=== PATIENT | female | born 1935 | race Caucasian/White ===

== ENCOUNTER 2016-11-26 08:14 | Emergency (ER) | payer MEDICARE, OTHER ==
[~2016-11-26] VITALS: Ht 149.9 cm; Wt 49.0 kg
[~2016-11-26 08:14] MED LIST: COLA100C PO; CYCL5TAB PO; HYDR-3533 PO; IBUP600 PO; LISI-357 PO; POLY119S PO; SENN187T PO; ULTR50TA PO
[2016-11-26 08:18] VITALS: BP 181/95; PULSE 85; RESP 18; TEMP 97.8; O2SAT 97
[2016-11-26] MEDS ORDERED: LISI-519 PO (08:28)
[2016-11-26 08:30] VITALS: BP 185/88; PULSE 82; RESP 14; TEMP 97.8; O2SAT 95
[2016-11-26] MEDS ORDERED: ACETAMINOPHEN 325 MG TAB PO ONE (09:30)
[2016-11-26] MEDS ORDERED: METHOCARBAMOL 500 MG TAB PO ONE (09:30)
--- NOTE | 2016-11-26 09:57 | PD ---
HPI Chief Complaint: Pain: Acute or Chronic Time Seen by Provider: 09:16 Travel History International Travel<30 days: No Contact w/Intl Traveler<30days: No Traveled to known affect area: No History of Present Illness HPI Patient is an 81-year-old female comes in complaining of left hip pain. She says she has had the pain since Tuesday. She says it started after she was helping her daughter find her camera. She says she lifted part of the couch and she felt a snap to the left side. Since then she has been having pain. She has not taken anything for pain as she says she does not like taking medications. She has been placing ice to the area. She has been walking around. She denies any numbness or tingling in her legs. She denies any urinary symptoms. PFSH Past Medical History Arthritis: Yes (FINGERS AND HANDS) Atrial Fibrillation: Yes Blood Disorders: No Cancer: No Cardiovascular Problems: Yes (AFIB) COPD: Yes Diminished Hearing: No Endocrine: No Gastrointestinal Disorders: No Genitourinary: Yes Hypertension: Yes Immune Disorder: No Medical other: Yes (OSTEOPOROSIS) Musculoskeletal: Yes Neurologic: No Psychiatric: No Respiratory: Yes Menopausal: Yes Past Surgical History Eye Surgery: Yes (OD CATARACT REMOVAL AND LENS PUT IN ) Gynecologic Surgery: Yes (PARTIAL HYSTERECTOMY AT AGE 20) Hysterectomy: Yes Other Surgery: Yes Social History Alcohol Use: No Tobacco Use: No Substance Use: No Allergies-Medications (Allergen,Severity, Reaction): Coded Allergies: promethazine (Unverified Allergy, Severe, "HIVES", 11/26/16) Reported Meds & Prescriptions Reported Meds & Active Scripts Active Reported Lisinopril 5 Mg Tab 5 Mg PO DAILY Review of Systems Except as stated in HPI: all other systems reviewed are Neg General / Constitutional: No: Fever, Chills HENT: No: Headaches, Lightheadedness Cardiovascular: No: Chest Pain or Discomfort Respiratory: No: Shortness of Breath Gastrointestinal: No: Nausea, Vomiting Genitourinary: No: Dysuria, Incontinence Musculoskeletal: Positive: Pain, No: Limited ROM, Edema Skin: No Rash, No Change in Pigmentation Neurologic: No: Weakness, Dizziness, Paresthesia, Sensory Disturbance Physical Exam Narrative GENERAL: Awake and alert, in no acute distress. SKIN: Focused skin assessment warm/dry. HEAD: Atraumatic. Normocephalic. EYES: Pupils equal and round. No scleral icterus. ENT: Mucous membranes pink and moist. NECK: Trachea midline. No JVD. CARDIOVASCULAR: Regular rate and rhythm. No murmur appreciated. RESPIRATORY: No accessory muscle use. Clear to auscultation. Breath sounds equal bilaterally. GASTROINTESTINAL: Abdomen soft, non-tender, nondistended. MUSCULOSKELETAL: No obvious deformities. No clubbing. No cyanosis. No edema. No tenderness to the thoracic or lumbar spine. No tenderness to palpation of the hip or pelvis. No pain with external or internal rotation of the left hip. NEUROLOGICAL: Awake and alert. No obvious cranial nerve deficits. Motor grossly within normal limits. Normal speech. PSYCHIATRIC: Appropriate mood and affect; insight and judgment normal. Data Data Last Documented VS Vital Signs Date Time Temp Pulse Resp B/P Pulse Ox O2 Delivery O2 Flow Rate FiO2 11/26/16 08:30 97.8 82 14 185/88 95 Room Air Orders Spine, Lumbar Comp W/Obliq (11/26/16 ) Hip, Uni(4+Vws) W Ap Pelvis (11/26/16 ) Acetaminophen (Tylenol) (11/26/16 09:30) Methocarbamol (Robaxin) (11/26/16 09:30) MDM Medical Decision Making Medical Screen Exam Complete: Yes Emergency Medical Condition: Yes Medical Record Reviewed: Yes Differential Diagnosis Hip fracture versus lumbar spine fracture versus muscle strain versus sciatica Narrative Course Patient is a 81 year old female who comes in complaining of left hip pain Exam shows no tenderness to palpation of the lumbar spine or hip. XR of the lumbar spine and hip show no acute abnormalities. Lumbar spine XR shows compression fracture at L1, which is old. I spoke with Dr. Alas regarding the XR and he says there is a slight decrease in height at L3 compared to the CT in 2014, and to get an MRI if the patient is having pain here. She is currently not tender to the lumbar spine. She is offered an MRI, but declines at this time. She will be discharged with prescription for Voltaren cream. She is advised to follow up with her PCP or return to the ED as needed for worsening symptoms. She is happy to be discharged at this time. Last 24 hours Impressions Lumbar Spine X-Ray 11/26/16 0000 Signed Impressions: Service Date/Time: Saturday, November 26, 2016 09:43 - CONCLUSION: 1. Severe compression fracture of L1. There is no significant bony retropulsion. 2. Degenerative changes in the lower lumbar spine. Herber Alas MD Hip and Pelvis X-Ray 11/26/16 0000 Signed Impressions: Service Date/Time: Tuesday, November 26, 2016 09:43 - CONCLUSION: 1. No acute bony abnormality hips identified. There are mild degenerative changes. Herber Alas MD Diagnosis Primary Impression: Hip strain Qualified Code: S76.012A - Strain of left hip, initial encounter Patient Instructions: General Instructions, Hip Pain (ED) Additional Instructions: Apply Voltaren cream as needed for pain. Follow up with your primary care doctor. Return to the ED as needed for any worsening symptoms. Scripts Diclofenac Sodium (Voltaren)100 Gm Gel..gram.4 G Topical Q6hr Prn (Pain Scale 1 To 10) #1 Prov:Cinthya Chávez MD 11/26/16 Disposition: 01 DISCHARGE HOME Condition: Stable Cinthya Chávez MD Nov 26, 2016 09:57
--- NOTE | 2016-11-26 10:29 | RADRPT ---
EXAM DATE/TIME: 11/26/2016 09:43 [facility] COMPARISON: No previous studies available for comparison. INDICATIONS : Lower back pain, no injury. MEDICAL HISTORY : Osteoporosis. SURGICAL HISTORY : None. ENCOUNTER: Initial ACUITY: 3 days PAIN SCORE: 9/10 LOCATION: Lower back FINDINGS: The examination demonstrates a severe compression fracture of L1. There is essentially vertebral plan a. The remainder of the lumbar vertebral bodies appear intact. There are mild degenerative changes in the facet joints at L3/4, L4/5 and L5/S1. CONCLUSION: 1. Severe compression fracture of L1. There is no significant bony retropulsion. 2. Degenerative changes in the lower lumbar spine. Herber Alas MD on November 26, 2016 at 10:25 Board Certified Radiologist. This report was verified electronically.
--- NOTE | 2016-11-26 10:30 | RADRPT ---
EXAM DATE/TIME: 11/26/2016 09:43 [facility] COMPARISON: No previous studies available for comparison. INDICATIONS : Left hip pain, no injury. MEDICAL HISTORY : Osteoporosis. SURGICAL HISTORY : None. ENCOUNTER: Initial ACUITY: 3 days PAIN SCORE: 9/10 LOCATION: Left hip FINDINGS: The femoral heads are well situated within the acetabular fossa bilaterally. There mild degenerative changes. The osseous structures of pelvis are otherwise intact. CONCLUSION: 1. No acute bony abnormality hips identified. There are mild degenerative changes. Herber Alas MD on November 26, 2016 at 10:27 Board Certified Radiologist. This report was verified electronically.
[2016-11-26] MEDS ORDERED: VOLT1GEL4 TOPICAL (10:50)
== END 2016-11-26 11:49 | disposition home or self-care (01) ==
LOC: NEPC 08:14
DX: S76.012A Strain of muscle, fascia and tendon of left hip, initial encounter (principal); X50.0XXA Overexertion from strenuous movement or load, initial encounter; Y92.009 Unspecified place in unspecified non-institutional (private) residence as the place of occurrence of the external cause; I10 Essential (primary) hypertension; I48.91 Unspecified atrial fibrillation; J44.9 Chronic obstructive pulmonary disease, unspecified
CPT/HCPCS: 72110; 73503; 99284